=== PATIENT | female | born 2000 | race Caucasian/White ===

== ENCOUNTER 2019-05-17 13:15 | Outpatient (RCR) | payer BC | END 2019-05-30 16:29 | disposition home or self-care (01) | LOC: WSC 13:15 | DX: M94.262 Chondromalacia, left knee (principal); M94.261 Chondromalacia, right knee ==

== ENCOUNTER 2019-08-02 17:46 | Emergency (ER) | payer BC ==
[~2019-08-02] VITALS: Ht 172.7 cm; Wt 72.7 kg
[2019-08-02 18:23] VITALS: TEMP 99
[2019-08-02 19:00] LABS: BASO % 0.3 % (0.0-2.0); EOS # 0.3 (0.0-0.7); EOS % 3.9 % (0-4.0); GRAN # 5.1 (1.4-6.5); GRAN % 78.5 % (42.2-75.2); HEMOGLOBIN 12.1 g/dl (12.5-16.0); LYMPH # 0.6 (1.2-3.4); LYMPH % 8.6 % (20.0-51.0); MEAN CELL VOLUME 96 fl (80.0-100.0); MEAN CORPUSCULAR HEMOGLOBIN 32 pg (27.0-31.0); MEAN CORPUSCULAR HGB CONC 33 g/dl (33.0-37.0); MEAN PLATELET VOLUME 9.4 fl (7.4-10.4); MONO # 0.5 (0.1-0.6); MONO % 8.4 % (1.7-9.3); PLATELET COUNT 204 K/mm3 (130-400); RED BLOOD COUNT 3.82 M/mm3 (4.10-5.30); REDCELL DISTRIBUTION WIDTH-CV 11.9 % (11.5-14.5)
[2019-08-02 19:01] LABS: HEMATOCRIT 36.5 % (37.0-47.0)
[2019-08-02 20:23] LABS: ALBUMIN 4.3 gm/dL (3.5-5.0); BILIRUBIN,TOTAL 0.2 mg/dL (0.0-1.0); C-REACTIVE PROTEIN 1.9 mg/dL (0.0-0.9); CALCIUM 9.1 mg/dL (8.4-10.2); CREATININE, serum 0.63 (0.52-1.25); POTASSIUM 3.6 mmol/L (3.4-5.0); TOTAL PROTEIN 7.3 gm/dL (6.4-8.2)
[2019-08-02] MEDS ORDERED: ZOFRAN 4MG T4 MG/TAB PO (20:31)
[2019-08-02 20:42] VITALS: BP 130/79; PULSE 94
== END 2019-08-02 20:42 | disposition home or self-care (01) ==
LOC: COL.ER 17:46
PROVIDERS: Emergency Medicine
DX: J11.1 Influenza due to unidentified influenza virus with other respiratory manifestations (principal)
CPT/HCPCS: J2405; J7030